=== PATIENT | male | born 1985 | race Caucasian/White ===

== ENCOUNTER → 2018-03-03 | Outpatient (CLI) | payer OTHER | LOC: M RAD 12:10 | DX: N18.9 Chronic kidney disease, unspecified (principal) ==

== ENCOUNTER → 2018-04-11 | Outpatient (REF) | payer OTHER | LOC: M LAB REF 13:19 | DX: R94.4 Abnormal results of kidney function studies (principal) ==

== ENCOUNTER → 2018-05-25 | Outpatient (REF) | payer OTHER ==
[2018-05-25 13:30] LABS: BACTERIA, URINE AUTO NEGATIVE (NEGATIVE); MUCUS, URINE SMALL (NEGATIVE); RBC, URINE AUTO 0 /HPF (0-3); SQUAMOUS EPITHELIAL CELL UR AU 0 /HPF (0-6); WBC, URINE AUTO 0 /HPF (0-3)
[2018-05-25 14:10] LABS: TOTAL PROTEIN,RANDOM URINE 16.2 MG/DL (0.0-12.0)
== END ==
LOC: M LAB REF 13:07
DX: R94.4 Abnormal results of kidney function studies (principal)
CPT/HCPCS: 82570